=== PATIENT | female | born 1975 | race Caucasian/White ===

== ENCOUNTER 2022-08-31 01:54 | Inpatient (IN) | payer BC ==
[2022-09-12] MEDS ORDERED: Bupivacaine 0.5%/EPINEPHrine 1:200,000 50 ML MDV ONE (06:51)
[2022-09-12] MEDS ORDERED: Neostigmine Methylsulfate 1 MG/ML 5 ML Syringe ONE (07:19)
[2022-09-12] MEDS ORDERED: Ondansetron 4 MG/2 ML SDV ONE (07:19)
[2022-09-12] MEDS ORDERED: Propofol 200 MG/20 ML SDV ONE (07:19)
[2022-09-12] MEDS ORDERED: Glycopyrrolate 0.2 MG/ML 5 ML MDV ONE (07:19)
[2022-09-12] MEDS ORDERED: Rocuronium 50 MG/5 ML Vial ONE (07:19)
[2022-09-12] MEDS ORDERED: Succinylcholine 200 MG/10 ML MDV ONE (07:19)
[2022-09-12] MEDS ORDERED: Dexamethasone 4 MG/ML SDV ONE (07:19)
[2022-09-12] MEDS ORDERED: Enoxaparin 40 MG/0.4 ML Syringe SUBCUT ONE (07:46)
[2022-09-12] MEDS ORDERED: Lactated Ringers 1,000 ML IV SCH (07:50)
[2022-09-12] MEDS ORDERED: Acetaminophen 500 MG Tab PO ONE (07:50)
[2022-09-12] MEDS ORDERED: Scopolamine 1.5 MG Transdermal Patch TRDERM ONE (07:51)
[2022-09-12] MEDS ORDERED: cefTRIAXone 2 GM in Sodium Chloride 0.9% 50 ML IV ONE (08:00)
[2022-09-12] MEDS ORDERED: metroNIDAZOLE/Normal Saline 500 MG in Premix Bag 1 BAG IV ONE (08:00)
[2022-09-12] MEDS ORDERED: Sodium Chloride 0.9% 1,000 ML IV SCH (08:15)
[2022-09-12] MEDS ORDERED: Lactated Ringers 1,000 ML ONE (10:32)
[2022-09-12] MEDS ORDERED: Ondansetron 4 MG/2 ML SDV IVPUSH PRN (11:00)
[2022-09-12] MEDS ORDERED: Acetaminophen 1,000 MG in Premix Bag 1 BAG IV PRN (11:00)
[2022-09-12] MEDS ORDERED: Pantoprazole 40 MG Vial IVPUSH PRN (11:00)
[2022-09-12] MEDS ORDERED: OLOPATADINE EYEBOTH PRN (11:07)
[2022-09-12] MEDS: Dextrose 5%-Lactated Ringers 1,000 ML IV SCH ×2 (12:32→20:57)
[2022-09-12] MEDS: Acetaminophen 1,000 MG in Premix Bag 1 BAG IV PRN ×2 (13:29→20:57)
[2022-09-12] MEDS: VERIFY SCOP PATCH TOP SCH (14:09)
[2022-09-12] MEDS: Enoxaparin 40 MG/0.4 ML Syringe SUBCUT SCH (23:08)
[2022-09-13] MEDS: Acetaminophen 1,000 MG in Premix Bag 1 BAG IV PRN ×3 (03:35→23:24)
[2022-09-13] MEDS: Dextrose 5%-Lactated Ringers 1,000 ML IV SCH ×2 (05:28→13:47)
[2022-09-13 05:45] LABS: HEMATOCRIT 36.8 % (34.3-46.0); HEMOGLOBIN 12.3 g/dL (11.2-15.5); MEAN CORPUSCULAR HEMOGLOBIN 29.6 pg (31.6-35.5); MEAN CORPUSCULAR HGB CONC 33.4 g/dL (31.6-35.5); MEAN CORPUSCULAR VOLUME 88.5 fL (81.4-99.0); RED BLOOD CELL COUNT 4.16 M/uL (3.77-5.24); WHITE BLOOD CELL COUNT,WBC 15.8 K/uL (3.2-11.0)
[2022-09-13 06:04] LABS: A/G RATIO 0.8 (1.2-2.2); ALANINE AMINOTRANSFERASE,ALT 174 U/L (12-78); ALBUMIN 2.9 g/dL (3.4-5.0); ALKALINE PHOSPHATASE 77 U/L (46-116); ASPARTATE AMNIOTRANSFERASE,AST 115 U/L (15-37); BILIRUBIN TOTAL 0.4 mg/dL (0.2-1.0); BLOOD UREA NITROGEN,BUN 8 mg/dL (7-18); CALCIUM 8.3 mg/dL (8.5-10.1); CARBON DIOXIDE,CO2 28 mmol/L (21-32); CHLORIDE,CL 103 mmol/L (100-108); CREATININE 0.7 mg/dL (0.6-1.0); ESTIMATED GFR 109 mL/min (>60); GLUCOSE RANDOM 127 mg/dL (74-106); POTASSIUM,K 3.5 mmol/L (3.6-5.2); PROTEIN TOTAL,TP 6.6 g/dL (6.4-8.2); SODIUM,NA 140 mmol/L (140-148)
[2022-09-13 06:07] LABS: ANION GAP 12.5 mmol/L (5.0-14.0)
[2022-09-13] MEDS ORDERED: Potassium Chloride 10 MEQ in Premix Bag 1 BAG IV ONE (08:00)
[2022-09-13] MEDS: VERIFY SCOP PATCH TOP SCH (08:01)
[2022-09-13] MEDS: Escitalopram 10 MG Tab PO SCH (08:01)
[2022-09-13] MEDS: Enoxaparin 40 MG/0.4 ML Syringe SUBCUT SCH ×2 (13:23→23:24)
[2022-09-13] MEDS ORDERED: Lactated Ringers 1,000 ML IV SCH (14:15)
[2022-09-14] MEDS ORDERED: Acetaminophen Soln 650 MG/20.3 ML UD Cup PO PRN (02:00)
[2022-09-14 05:44] LABS: MEAN CORPUSCULAR HEMOGLOBIN 29.3 pg (31.6-35.5); MEAN CORPUSCULAR HGB CONC 32.4 g/dL (31.6-35.5); MEAN CORPUSCULAR VOLUME 90.4 fL (81.4-99.0); RED BLOOD CELL COUNT 3.76 M/uL (3.77-5.24); WHITE BLOOD CELL COUNT,WBC 10.1 K/uL (3.2-11.0)
[2022-09-14 06:00] LABS: CALCIUM 8.3 mg/dL (8.5-10.1); CREATININE 0.7 mg/dL (0.6-1.0); EST CRCL DRUG DOSING (CG) 72.9 mL/min; MAGNESIUM 1.9 mg/dL (1.8-2.4); PHOSPHORUS 2.5 mg/dL (2.5-4.9); POTASSIUM,K 3.5 mmol/L (3.6-5.2)
[2022-09-14 06:10] LABS: ANION GAP 10.5 mmol/L (5.0-14.0)
[2022-09-14] MEDS: Escitalopram 10 MG Tab PO SCH (08:30)
[2022-09-14] MEDS: VERIFY SCOP PATCH TOP SCH (08:46)
[2022-09-14] MEDS ORDERED: Potassium Chloride 10 MEQ in Premix Bag 1 BAG IV ONE (09:00)
[2022-09-14] MEDS: Enoxaparin 40 MG/0.4 ML Syringe SUBCUT SCH (10:39)
[2022-09-15] MEDS ORDERED: Scopolamine 1.5 MG Transdermal Patch TRDERM PRN (08:00)
== END 2022-09-14 15:45 | disposition home or self-care (01) | DRG 403 ==
LOC: JP.SDSSCHI 09-12 06:32 → JP.MS 09-12 11:01
PROVIDERS: ADMIT Student in an Organized Health Care Education/Training Program; ATTEND Student in an Organized Health Care Education/Training Program
PROC: 0DB64Z3 Excision of Stomach, Percutaneous Endoscopic Approach, Vertical (ICD-10-PCS; principal; 2022-09-12)
PROC: 8E0W4CZ Robotic Assisted Procedure of Trunk Region, Percutaneous Endoscopic Approach (ICD-10-PCS; 2022-09-12)
DX: E66.01 Morbid (severe) obesity due to excess calories (principal); Z68.42 Body mass index [BMI] 45.0-49.9, adult; I10 Essential (primary) hypertension; E87.6 Hypokalemia; F41.1 Generalized anxiety disorder; G47.33 Obstructive sleep apnea (adult) (pediatric); K21.9 Gastro-esophageal reflux disease without esophagitis; Z90.49 Acquired absence of other specified parts of digestive tract; Z90.710 Acquired absence of both cervix and uterus; Z98.890 Other specified postprocedural states
CPT/HCPCS: 36415; 80048; 80053; 82947; 83735; 84100; 85027; 88307; A9270-GY; J0131; J0330; J0696; J1100; J1650; J2405; J2704; J2710; J3480; J3490; J7120; J7121